=== PATIENT | male | born 1990 | race Hispanic/Latino ===

== ENCOUNTER 2018-01-08 21:02 | Emergency (ER) | payer SELFPAY ==
[~2018-01-08] VITALS: Ht 167.6 cm; Wt 97.4 kg
[2018-01-08 21:45] LABS: INFLUENZA A NONE DETECTED (NONE DETECT); INFLUENZA B NONE DETECTED (NONE DETECT)
[2018-01-08] MEDS ORDERED: CODEINE/GUAIFEN1 SOL PO (22:55)
[2018-01-08] MEDS ORDERED: AMOXICILLIN500 MG PO (22:55)
[2018-01-08 23:09] VITALS: BP 128/73
== END 2018-01-08 23:20 | disposition home or self-care (01) | DRG 153 ==
LOC: ED 21:02
PROVIDERS: Emergency Medicine
DX: J06.9 Acute upper respiratory infection, unspecified (principal); M79.1 Myalgia; R05 Cough; R50.9 Fever, unspecified; R09.81 Nasal congestion; R09.89 Other specified symptoms and signs involving the circulatory and respiratory systems